=== PATIENT | female | born 1945 | race Caucasian/White ===

== ENCOUNTER 2018-02-16 12:10 | Observation (INO) | payer OTHER, MEDICARE ==
--- NOTE | 2018-02-15 13:55 | GHP ---
[f rep st] PREOP HISTORY AND PHYSICAL DATE OF ADMISSION: 02/21/2018 PROBLEM: Right knee arthritis. HISTORY OF PRESENT ILLNESS: The patient is a 72-year-old woman admitted for a right total knee arthr oplasty. She first injured her knees in 2001 when she was hit by a large dog. She had surgery on on e knee in 2001 and the other knee in 2002. These were probably lateral release procedures. She has had progressive pain. She is now having daily pain which interferes with her activities and her abil ity to walk. She is using Celebrex and Advil. She had viscosupplementation injections last July but they did not help. She is admitted for a right total knee arthroplasty. PAST MEDICAL HISTORY: She had a right total hip arthroplasty done in December of 2015. She is treated fo r asthma/COPD and GERD. No history of heart disease, stents, DVT, hepatitis, or MRSA staph infection . She has sleep apnea and uses a CPAP machine. CURRENT MEDICATIONS: Celebrex. Advair. Combivent. DRUG ALLERGIES: Penicillin. METAL ALLERGY: None. LATEX ALLERGY: None. SOCIAL HISTORY: She is retired. She does not smoke cigarettes and occasionally drinks alcohol. Her daughter and son-in-law live with her. FAMILY HISTORY: Positive for arthritis and asthma. PHYSICAL EXAMINATION: GENERAL: She is an alert, healthy-appearing elderly woman. VITAL SIGNS: Hei ght 5 feet 6 inches, weight 187 pounds, BMI 30.2. EYES: Conjunctivae and sclerae are clear. Pupils are round and reactive. She has had bilateral cataract surgery with lens implants. MOUTH: Good ora l hygiene. CHEST: Clear. HEART: Regular rhythm. No murmurs. EXTREMITIES: Pertinent findings ar e limited to her right knee. She has a moderate effusion. She has a 10-degree flexion contracture a nd further flexion to 90 degrees. Her ligaments are stable. IMAGING: Films show very severe degenerative arthritis of both knees. Extensive osteophyte formatio n is present. Radiographically, her left knee is worse than her right. IMPRESSION ON ADMISSION: 1. Bilateral knee severe degenerative arthritis. She is prepared for a right total knee arthroplast y. 2. History of chronic obstructive pulmonary disease/asthma. 3. Treatment for gastroesophageal reflux disease. PLAN: She will undergo a right total knee arthroplasty. The surgery has been described to her inclu ding the risks, complications, expectations, and recovery time. I have stressed the importance of po stoperative physical therapy. She has somewhat limited preoperative range of motion which could nega tively impact her ultimate postop range of motion. All her questions have been answered, and she con sents to surgery. /[id number]/MODL
--- NOTE | 2018-02-16 12:48 | CPEKG ---
Heart Rate: 79 RR Interval: 759 P-R Interval: 160 QRSD Interval: 94 QT Interval: 392 QTC Interval: 450 P [place]: 67 QRS [place]: 14 T Wave [place]: 23 EKG Severity - NORMAL ECG - EKG Impression: SINUS RHYTHM Electronically Signed By: Wil Greene 19-Feb-2018 02:38:01
[2018-02-16 12:49] LABS: PLATELET COUNT 446 10^3/uL (150-400)
[2018-02-21] MEDS ORDERED: TRANEXAMIC ACID 3,000 MG in NS (SYRINGE) 50 ML IRR ONE (06:00)
[2018-02-21] MEDS ORDERED: POVIDONE-IODINE 20 ML in SODIUM CL IRRIG SOLUTION 500 ML IRR ONE (06:00)
[2018-02-21] MEDS ORDERED: ROPIVACAINE 0.2% 80 MG, EPINEPHrine 0.2 MG, KETOROLAC TROMETHAMINE 30 MG in SYRINGE 0 ML IU ONE (06:00)
[2018-02-21] MEDS ORDERED: VANCOMYCIN PHARMACY TO DOSE MISC ONE (06:00)
[2018-02-21] MEDS ORDERED: VANCOMYCIN 1.25 GM in NS 250 ML IV ONE (06:00)
[2018-02-21] MEDS ORDERED: TRANEXAMIC ACID 1,000 MG in NS 100 ML IV ONE (06:00)
== END 2018-02-21 09:00 | disposition home or self-care (01) ==
LOC: F3N 12:10 → UNDOADMOB 12:10 → F3N 02-21 07:56
PROVIDERS: ADMIT Orthopaedic Surgery; ATTEND Orthopaedic Surgery
DX: M17.0 Bilateral primary osteoarthritis of knee (principal); Z53.8 Procedure and treatment not carried out for other reasons; R60.9 Edema, unspecified; I87.2 Venous insufficiency (chronic) (peripheral); I10 Essential (primary) hypertension; J44.9 Chronic obstructive pulmonary disease, unspecified; E78.5 Hyperlipidemia, unspecified; K21.9 Gastro-esophageal reflux disease without esophagitis; E11.9 Type 2 diabetes mellitus without complications; M51.86 Other intervertebral disc disorders, lumbar region; Z87.01 Personal history of pneumonia (recurrent); Z86.79 Personal history of other diseases of the circulatory system
CPT/HCPCS: 93005; J0171; J1885; J2795; J3370